=== PATIENT | female | born 1955 | race Caucasian/White ===

== ENCOUNTER 2016-08-23 10:08 | Outpatient (CLI) | payer BC ==
--- NOTE | 2016-08-23 11:35 | DIAGNOSTIC IMAGING REPORT ---
PROCEDURE: DEXA BONE DENSITY STUDY CLINICAL INDICATION: PREVENTIVE HEALTH CARE, (vitamin D and calcium supplementation. COMPARISON: None. FINDINGS: LUMBAR SPINE: Bone mineral density 1.059 g/cm2, T score 0.1, normal . LEFT HIP: Bone mineral density 0.875 g/cm2, T score -0.6, normal . LEFT FEMORAL NECK: Bone mineral density 0.814 g/cm2, T score -0.3, normal . FRACTURE RISK CALCULATION ( when applicable): All T scores are at or above -1.0 (T score greater or equal to -1.0 to: NORMAL) (T score from -1.1 to -2.4: OSTEOPENIA) (T score ess than or equal to -2.5: OSTEOPOROSIS) IMPRESSION: 1. Normal bone mineral density. No increased risk of fracture.
--- NOTE | 2016-08-24 13:44 | DIAGNOSTIC IMAGING REPORT ---
PROCEDURE: MG BILATERAL SCREENING W/CAD INDICATION: PREVENTIVE HEALTH CARE TECHNIQUE: Bilateral CC and MLO digital views. COMPARISON: Baseline FINDINGS: Computer-aided detection applied. Mildly dense. No suspicious mass, architectural distortion or pleomorphic microcalcifications. IMPRESSION: 1. Probably negative mammogram RESULT CODE: 0- Prior images needed. A. A negative report should not delay biopsy if a dominant or clinically suspicious mass is present. 10-15% of cancers are not identified by x-ray. B. A negative report may reinforce clinical impression. C. Adenosis and dense breasts may obscure an underlying neoplasm. D. False positive reports average 6-10%. E.. A yearly screening mammogram is recommended. A reminder letter will be scheduled.
[2016-10-04] MEDS ORDERED: VITAMIN D-31000 UNIT PO (12:16)
[2016-10-04] MEDS ORDERED: FLONASE AL50 MCG/ACT (12:17)
[2016-10-04] MEDS ORDERED: FISH OIL1000 M1 (12:17)
[2016-10-04] MEDS ORDERED: MULTIPLE VITAMIN PO (12:18)
== END 2016-08-23 23:00 ==
LOC: MAM SRH 10:08 → XR SRH 11:15 → MAM SRH 23:00
DX: Z12.31 Encounter for screening mammogram for malignant neoplasm of breast (principal); Z78.0 Asymptomatic menopausal state

== ENCOUNTER 2016-11-02 08:11 | Day surgery (SDC) | payer BC ==
[~2016-11-02] VITALS: Ht 167.6 cm; Wt 80.7 kg
[~2016-11-02 08:11] MED LIST: FISH OIL1000 M1; FLONASE AL50 MCG/ACT; MULTIPLE VITAMIN PO; VITAMIN D-31000 UNIT PO
--- NOTE | 2016-11-02 08:32 | NUR ---
PRE OP INSTRUCTIONS GIVEN AND SAFETY ISSUES DISCUSSED PT AND SPOUSE HAD QUESTIONS ANSWERED PT CONFIRMED PROCEDURE PT SIGNED CONSENT
--- NOTE | 2016-11-02 09:30 | NUR ---
PATIENT ARRIVED TO PACU AT 0926. SPONT RESP. AROUSABLE. VITALS STABLE. WILL CONTINUE TO MONITOR.
--- NOTE | 2016-11-02 09:36 | NUR ---
PATIENT'S VITALS REMAIN STABLE. PASSING GAS. AWAKE AND AWARE.
--- NOTE | 2016-11-02 09:45 | Provider's Discharge Care Plan ---
Problem, Goal, Plan Problem List 1. Diverticulosis
--- NOTE | 2016-11-02 09:45 | Provider's Discharge Care Plan ---
Problem, Goal, Plan Problem List 1. Diverticulosis
--- NOTE | 2016-11-02 09:59 | NUR ---
PT RETURNED FROM PACU PASSING FLATUS NO COMPLAINTS
[2016-11-02 10:43] VITALS: BP 117/70
--- NOTE | 2016-11-02 10:44 | OPERATIVE REPORT ---
DATE OF SURGERY: 11/02/2016 SURGEON: Michael Mcnulty MD PREOPERATIVE DIAGNOSIS: 1. Colon cancer risk POSTOPERATIVE DIAGNOSIS: 1. Diverticulosis PROCEDURE PERFORMED: 1. Colonoscopy ANESTHESIA: Total IV general. INDICATIONS: The patient is a 61-year-old woman undergoing screening colonoscopy. SURGICAL TECHNIQUE: The patient was taken to the endoscopy suite, where total IV general was administered and the patient was placed in the left lateral decubitus position. A well-lubricated colonoscope was advanced the length of the colon under direct vision. Diverticula were seen in the sigmoid colon. The ileocecal valve was visualized and on withdrawal, the entire colon was inspected, including a retroflexed view of the rectum. There were no polyps or tumors seen and the patient left in good condition.
--- NOTE | 2016-11-02 11:01 | NUR ---
PT STATED FEELING OK ASKING TO GO HOME REVIEWED DISCHARGE INSTRUCTIONS VERBAL AND WRITTEN PT AND S/O EXPRESSED UNDERSTANDING PT RECITED BACK NO DRIVING OR MAKING MAJOR DECISIONS
--- NOTE | 2016-11-02 11:20 | NUR ---
PT DISCHARGED PER WC ACCOMPANIED BY S/O
== END 2016-11-02 11:20 | disposition home or self-care (01) ==
LOC: SCU SRH 08:11 → OR SRH 08:11
PROVIDERS: Surgery
PROC: 0DJD8ZZ Inspection of Lower Intestinal Tract, Via Natural or Artificial Opening Endoscopic (ICD-10-PCS; principal; 2016-11-02 08:30)
DX: Z12.11 Encounter for screening for malignant neoplasm of colon (principal); K57.30 Diverticulosis of large intestine without perforation or abscess without bleeding
CPT/HCPCS: 29229; 29240; 50004; 60001; 83526